=== PATIENT | female | born 1960 | race Caucasian/White ===

== ENCOUNTER 2025-07-28 14:19 | Emergency (ER) | payer OTHER, SELFPAY ==
[2025-07-28] VITALS (52 sets, daily range): BP systolic 120–168; BP diastolic 65–111; PULSE 93–104; TEMP 36.9; O2SAT 89–99; BMI 41.5
--- NOTE | 2025-07-28 15:04 | ECG_ITS ---
The [facility] Test Date: 2025-07-28 Pat Name: CHELI CHAMBERLAIN Department: Room: - Gender: Female Accounts Payable Clerk: : 1960 Requested By: [id number] Order Number: [id number] Reading MD: CASANDRA DIAZ Measurements Intervals [place] Rate: 101 P: 44 [place]: 154 QRS: 13 QRSD: 108 T: 40 QT: 334 QTc: 392 Interpretive Statements 1120 Sinus tachycardia 3114 Cannot rule out anterior myocardial infarction, age undetermined 9150 abnormal ECG No previous ECG available for comparison Electronically Signed On 07-28-2025 16:43:28 EST by CASANDRA DIAZ
--- NOTE | 2025-07-28 15:04 | XR_ITS ---
The [address] [address] Patient Name: CHELI CHAMBERLAIN MRN: [id number] date: 1960 Sex: F Assigned Patient Location: ED.MAIN Current Patient Location: ER Accession/Order Number: [id number] Exam Date: 07/28/2025 15:41 Report Date: 07/28/2025 16:44 At the request of: KANE MCGUIRE Procedure: XR chest 1V XR chest 1V 07/28/2025 3:46 PM SIGNS AND SYMPTOMS: ^edema ^ Weakness PROTOCOL: Frontal radiograph of the chest COMPARISON: None FINDINGS: The trachea is midline. There is mild cardiomegaly. The mediastinal structures are within normal limits. There is mild perihilar vascular prominence. The bony thorax is intact. XR/XR chest 1V IMPRESSION: Mild cardiomegaly is present with mild perihilar vascular prominence. This may represent sequelae of congestive heart failure. Impression dictated by: Camilo Platt M.D. 07/28/2025 4:44 PM Dictation Location: [place] [address] Electronically authenticated by: [id number] Y Date: 07/28/2025 16:44
--- OUTSIDE RECORDS SUMMARY | 2025-07-28 15:23 | XMS_ITS | Clinical Summary ---
Author Organization [facility] Address [address] [place], [place] [address] Care Team Providers Care Shipping And Receiving Material Handler Name Role Phone Amanda Tao MD Primary Care Provider [phone]- [phone] Allergies Active AllergyReactionsCriticalityNoted DateCommentsCodeineOther: See Comments 05/01/2013DoxycyclineShortness of Dgvivb4504/25/2013 Medications MedicationSigDispense QuantityRefillsLast FilledStart DateEnd DateStatus lisinopril-hydrochlorothiazide 10-12.5 mg per tablet Take 1 tablet by mouth once daily.Active cloNIDine TTS (CATAPRES-TTS) 0.1 mg/24 hr Apply 1 Patch as directed once each week.Active calcium polycarbophil (FIBERCON) 625 mg tablet Take 625 mg by mouth once daily.Active iv contrast (radiology procedure) CT Chest ABD/PEL-Inject, intravenously, once for 1 dose.No IV access, insert saline lock prior to the beginning of sedation, infusion, injection of imaging exam. Discontinue saline lock post exam. IfPt. has a central line or IVAD, may access for administration according to line specific nursing protocol. Once exam is complete flush line and de-access according to line specific nursing protocol in the CT contrast administration guidelines link. 1 Each Active enteric contrast (radiology procedure) For CT CHESTABD/PEL W IVCON Routine order Administer, As Directed One Time Only, via Oral, Rectal, both Oral and Rectal, Enteric Tube, Stoma or Indwelling Catheter, Enteric Contrast as designated perenteric contrast guidelines 1 Each Active iv contrast (radiology procedure) CT Chest ABD/PEL-Inject, intravenously, once for 1 dose.No IV access, insert saline lock prior to the beginning of sedation, infusion, injection of imaging exam. Discontinue saline lock post exam. IfPt. has a central line or IVAD, may access for administration according to line specific nursing protocol. Once exam is complete flush line and de-access according to line specific nursing protocol in the CT contrast administration guidelines link. 1 Each 07/27/2016Active enteric contrast (radiology procedure) For CT CHESTABD/PEL W IVCON Routine order Administer, As Directed One Time Only, via Oral, Rectal, both Oral and Rectal, Enteric Tube, Stoma or Indwelling Catheter, Enteric Contrast as designated perenteric contrast guidelines 1 Each 07/27/2016Active Active Problems ProblemNoted DateDiagnosed DateAbnormal gjuoznilj33/11/2015History of rectal or anal wwsaqd3407/22/20147146Fpbbmnt65/10/1459Qnizrcsip02/02/2013HTN (hypertension) 04/25/2013Squamous cell carcinoma of anal canal04/25/2013 Family History Medical HistoryRelationCommentsCancerFatherunklnown sourceCancerMotherovarian CancerOtherAunt breastRelationStatusCommentsFatherMotherOther Social History Tobacco UseTypesPacks/DayYears UsedDateSmoking Tobacco: NeverSmokeless Tobacco: NeverAlcohol UseStandard Drinks/WeekCommentsYes0 (1 standard drink = 0.6 oz pure alcohol)occasionallyCommentsNoSex and Gender InformationValueDate RecordedSex Assigned at BirthNot on fileLegal HxxTbylxh45/04/2013 11:19 AM EDT Gender IdentityNot on fileSexual OrientationNot on file Last Filed Vital Signs Vital SignReadingTime TakenCommentsBlood Hkruagmc594/8407/27/2016 10:08 AM EST Uaust437907/27/2016 10:08 AM DBEFysnfwagzug19.1 ??C (98.7 ??F)07/27/2016 10:08 AM ESTRespiratory Oxma798609/27/2015 10:08 AM ESTOxygen Rulyitreqs83%06/24/2013 10:00 AM ESTInhaled Oxygen Concentration--Oqidby311.4 kg (263 lb 3.2 oz)07/27/2016 10:08 AM ITEBedxiy562.7 cm (5' 7.99 )07/27/2016 10:08 AM ESTBody Mass Index40.03 07/27/2016 10:08 AM EST Plan of Treatment Health MaintenanceDue DateLast DoneCommentsAnxiety Wdbemgfkw58/30/1979Depression Irlmtjiph68/30/1979HIV Mlhotacfq94/30/1979Hepatitis C Ixfiagrsz03/30/1979 DTaP,Tdap,Td Vaccine (1 - Tdap)02/10/1980Cervical Cancer Wroprljho33/30/1982 Mammogram Dmhfteqbk74/30/2001CT Cqlqgmloitsb58/30/2006Cologuard (FIT-DNA) 02/09/20063753Tyqcbucijhx21/30/2006Colorectal Cancer Foheuuxaf67/30/2006Fecal Occult Blood2006Lipid Peotsigdl48/30/2224Zfszyhoytihvy75/30/2006Pneumococcal Vaccine: 50+ (1 of 1 - PCV)2011Shingrix Vaccine (1 of 2)2011Diabetes Hpmniiclj57Covid-19 Vaccine (1 - 2024- season)2025 Influenza Vaccine (#1)2025RSV Vaccine (1 - 1-dose 75+ series)02/10/2036 Procedures Procedure NamePriorityDate/TimeAssociated DiagnosisCommentsCOMPREHENSIVE METABOLIC BCXXYGjjfrrr51/10/2014 3:18 PM EST Squamous cell carcinoma of anal canal History of rectal or anal cancer from Last 3 Months or Most Recently Relevant to Health Maintenance Results * (ABNORMAL) COMP METABOLIC PANEL (07/22/2014 3:18 PM EST)ComponentValueRef RangeTest MethodAnalysis TimePerformed AtPathologist SignatureProtein, Total 7.16.0 - 8.4 g/dLBUCYRUS COMM[facility]ITY [facility]PITAL LABORATORYAlbumin4.43.5 - 5.0 g/dL [facility] JEMDHYHWDBXifdblt06.08.5 - 10.5 mg/dLBUCYRUS COMMUNITY HOSPITAL LABORATORYBilirubin, Total0.60.0 - 1.5 mg/dLBUCYRUS COMMUNITY HOSPITAL LABORATORYAlkaline Ukjbicvqqmp8442 - 150 U/LCPREMI[facility] LABORATORY DWF624 - 40 U/LCPREMIER [facility] FIDVHXOFPXIcethre478(H)65 - 100 mg/dL [facility] TDBGMUKQYIMGN482 - 25 mg/dLBUCYRUS [facility]UNITY [facility]OSP[facility] LABORATORYCreatinine1.100.70 - 1.40 mg/dLBUCYRUS COMMUNITY [facility] LAB[facility]ORY Olzqai500653 - 148 mmol/LCKETTER[facility] LABORATORYPotassium4.03.5 - 5.0 mmol/LCKETTERING [facility] BTPIBOYQFZPyrlxbmk74714 - 110 mmol/LCPREMIER [facility] KFNQWCXVPXNW66258 - 32 mmol/LCKETTERING [facility] LABORATORYAnion Dnq832 - 15 mmol/LCKETTERING [facility] REUAOIEIMWSGK078 - 45 U/LCPREMIER [facility]ALTH [facility]TR[facility] LABORATORYeGFR->60[facility] eGFR-All Other Races52.[facility] LABORATORYComment: eGFR (Estimated GFR) Units of measure: mL/min/1.73 meters squared eGFR is derived from the reexpressed MDRD Study equation using the following parameters: serum creatinine, age, gender and race. The creatinine assay has been calibrated to be traceable to IDMS. An eGFR <60 mL/min/1.73m2 for >3 months is consistent with chronic kidney disease. Refer to KDOQI guidelines for clinical interpretation. In patients with unstable renal function, e.g. those with acute kidney injury, the eGFR may not accurately reflect actual GFR. Specimen (Source)Anatomical Location / LateralityCollection Method / Volume Collection TimeReceived TimeBlood specimen (specimen)BLOOD SPECIMEN / Unknown 07/22/2014 3:18 PM EST07/22/2014 3:23 PM EST Narrative Authorizing ProviderResult TypeResult StatusAntoine Chan DOLABORATORY Final ResultPerforming OrganizationAddressCity/State/ZIP CodePhone Number [facility] [address] [place] [address] from Last 3 Months or Most Recently Relevant to Health Maintenance Care Teams Team MemberRelationshipSpecialtyStart DateEnd Date Amanda Tao MD [address] [place] [address] PCP - GeneralFamily Medicine04/16/13
--- OUTSIDE RECORDS SUMMARY | 2025-07-28 15:23 | XMS_ITS | Patient Health Record ---
Author Organization [facility] [place] Address [address] [place] [address] Care Team Providers Care Reweaver Name Role Phone Mane HAYES-Almaz Primary Care Provider Alexandrea vailable Jose Borrego Unavailable [phone] Allergies No Known Allergies Reason For Referral Diagnosis 1 Chronic kidney disea se, stage 3 unspecified (N18.30) Referring Provider First Name Almaz Referring Provider Last Name Mane Referring Provider Speciality Nurse Prac titioner [facility] Referred Provider Jose Borrego Referred Address [address] [place], [place],[address], Referred Provider Specialty Nephrology General Notes Doreen Gannon 02/12 01:10:27 PM >Appt 04/20/2025, MAILED N/P INFO Referral Priority Routine Medications Medication SIG (Take, Route, Frequency, Duration) Notes Start Date End Date Status Levothyroxine Sodium 75 MCG 1 tablet in the morning on an empty stomach Orally Once a day ActiveLisinopril 5 MG1 tablet Orally Once a dayActiveLoperamide HCl 2 MG1 tablet as needed OrallyActiveVitamin Z3ArdoqwGyccglojheb HCl 20 MG1 tablet Orally BID Active Social History Tobacco Use: Social History Observation Description Date Details (start date - stop date) Never Smoker NA - NA Tobacco Control (Standard) Question Answer Notes Tobacco use: Nonsmoker Problems Problem Type SNOMED Code ICD Code Onset Dates Problem Status W/U Status Risk Notes Problem Hypothyroidism (30945114) Hypothyroidism (acquired) (E03.9) ActiveconfirmedProblemEssential hypertension (90330969)Asymptomatic hypertension (I10)ActiveconfirmedProblemChronic kidney disease stage 3 (disorder) (002624604) Chronic kidney disease, stage 3 unspecified (N18.30)ActiveconfirmedProblem Chronic kidney disease stage 3A (disorder) (188819047)Chronic kidney disease, stage 3a (N18.31)Activeconfirmed Vital Signs Blood pressure diastolic 90 mm Hg 05/25/2025 Ddheqf3an 7.5in in05/25/2025lood pressure txpoggrc616 mm Hg05/25/2025Weight 273.8 lbs1MI42.25 kg/m205/25/2025 Encounters Encounter Location Date Provider Diagnosis [address] [address] 04/20/2025 Jose Borrego Chronic kidney disea se, stage 3a N18.31 ; Hypothyroidism (acquired) E03.9 ; Cystitis N30.90 and Asymptomatic hypertension I10 [address] [address] 05/25/2025 Jose Borrego Chronic kidney disea se, stage 3a N18.31 ; Asymptomatic hypertension I10 and Cystitis N30.90 [facility] [address] [address] 04/03/2025 Jose Borrego Assessments Encounter Date Diagnosis (ICD Code) Assessment Notes Treatment Notes Treatment Clinical Notes Section Notes 04/20/2025 Hypothyroidism (acquired) (ICD-1 0 - E03.9) 04/20/2025hronic kidney disease, stage 3a (ICD-10 - N18.31) 65 yo F with CKD 3a, htn, 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 No need for repeat renal imaging, no stones or hydronephrosis on recent CT scan Avoid all NSAID use Encourage good daily oral hydration Continue lisinopril 5mg po daily for BP control Check initial blood and urine studies for evaluation of her CKD Continue thyroid replacement Plan office f/u in a few weeks to review her results 05/25/2025symptomatic hypertension (ICD-10 - I10)05/25/2025hronic kidney disease, stage 3a (ICD-10 - N18.31) 65 yo F with stable CKD 3a related to htn Mild UA abnormalities 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 Avoid all NSAID use Encourage good oral hydration Continue MEAGHAN-I for management of htn and albuminuria PTH and vit D levels are OK Appears euvolemic on exam today No need to add an SGLT2i yet Monitor home BP log and call the office his over 130/80 on a regular basis 05/25/2025ystitis (ICD-10 - N30.90)04/20/2025ystitis (ICD-10 - N30.90) 04/20/2025symptomatic hypertension (ICD-10 - I10) Plan Of Treatment Pending Test Test Name Order Date UA (URINALYSIS, COMPLETE) 04/20/2025 UA (URINALYSIS, COMPLETE) 05/25/2025 ALBUMIN, BLOOD 05/25/2025 ALBUMIN, BLOOD 04/20/2025 MAGNESIUM 04/20/2025 MAGNESIUM 05/25/2025 CBC NO DIFF 05/25/2025 CBC NO DIFF 04/20/2025 PHOSPHORUS 04/20/2025 PHOSPHORUS 05/25/2025 PTH INTACT (PARATHYROID HORMONE) 025 PTH INTACT (PARATHYROID HORMONE) 025 URIC ACID 04/20/2025 URIC ACID 05/25/2025 VITAMIN D, 25 LEVEL (TOTAL) 05/25/2025 VITAMIN D, 25 LEVEL (TOTAL) 04/20/2025 BMP (BASIC MET PANEL) w/eGFR CKD-EPI 03/2025 BMP (BASIC MET PANEL) w/eGFR CKD-EPI MICROALBUMIN w CREAT RATIO 05/25/2025 MICROALBUMIN w CREAT RATIO 04/20/2025 Next Appt Details Provider Name:Jose Lance Borrego, 11/23/2025 01:00:00 PM, [address] [facility], [place], [address], Insurance Providers Payer Name Payer Address Payer Phone Subscriber Number Group Number Insured Name Patient Relationship to Insured Coverage Start Date Coverage End Date [place] [employer] [facility] EXCH[employer] [address] [place] [address] [phone] [id number] Karen Antunez Self - patient is the insured Medical (General) History Medical History History ICD Code abdominal pain abnormal CT of the abdomenalopeciaanal canceratrophic vaginitisbleeding hemorrhoidcolon polypdifficulty voidingHx of colon polypshypothyroidismIBS indigestionlung rumwgw-hptizvf-karg 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
--- OUTSIDE RECORDS SUMMARY | 2025-07-28 15:23 | XMS_ITS | Clinical Summary ---
Author Organization [facility] Address [address] [place] [address] Phone Care Team Providers Care Brick Cleaner Name Role Phone Amanda Tao MD Primary Care Provider +1- [phone] Social History Tobacco UseTypesPacks/DayYears UsedDateSmoking Tobacco: Never Assessed CommentsUnknownSex and Gender InformationValueDate RecordedSex Assigned at Not on fileLegal KeuRhsrhb39/26/2022 9:37 AM ESTGender IdentityNot on fileSexual OrientationNot on file Last Filed Vital Signs Vital SignReadingTime TakenCommentsBlood Ajgcxobe700/7808 9:31 AM EDT Qhxkw0725 9:29 AM EDTTemperature--Respiratory Rate--Oxygen Saturation-- Inhaled Oxygen Concentration--Iueoxu718 kg (261 lb)03/20/2022 9:29 AM EDTHeight 170.2 cm (5' 7 )03/20/2022 9:29 AM EDTBody Mass Index40.8808 9:29 AM EDT Plan of Treatment Not on file Care Teams Team MemberRelationshipSpecialtyStart DateEnd Date Amanda Tao MD [address] Amanda Tao [place] [address] PCP - General12/11/17
--- OUTSIDE RECORDS SUMMARY | 2025-07-28 15:23 | XMS_ITS ---
Author Organization [facility] Address [address] [place], [place] [address] Care Team Providers Care Software Engineer Name Role Phone Amanda Tao MD Primary Care Provider Active Problems ProblemNoted DateDiagnosed DateAbnormal dwmhwmkqi65/11/2015History of rectal or anal gggqws3507/22/20149592Lbcuajq80/10/4119Noimxpdnx38/02/2013HTN (hypertension) 04/25/2013Squamous cell carcinoma of anal canal04/25/2013 Current Treatment and Therapy Plans No current plan information found. Past Treatment and Therapy Plans Plan NameStart DateDiscontinue DateTreatment MedicationsDiscontinue ReasonPlan ProviderCyclesCENTRAL LINE FLUSH - Weekly x 24 weeksNo medications scheduled.Antoine Vargas, DO1 of 1 cycle startedPlan Name Start DateDiscontinue DateTreatment MedicationsDiscontinue ReasonPlan Provider CyclesFluids/KCL06/24/2013No medications scheduled.Antoine Vargas, DO 1 of 1 cycle startedNS 1000ML IV DURING VISIT06/24/2013No medications scheduled. Antoine Vargas, DOTreatment not startedPlan NameStart DateDiscontinue DateTreatment MedicationsDiscontinue ReasonPlan VtjrabstZqrcoh7KY 4000 CADD 96 HOURS D1,29 MITOMYCIN 10 D1,291* fluorouracil iv infusion CASSETTE (ADRUCIL) * mitoMYcin syringe (MUTAMYCIN) Antoine Vargas, DO1 of 1 cycle started
--- OUTSIDE RECORDS SUMMARY | 2025-07-28 15:23 | XMS_ITS | Clinical Summary ---
Author Organization [facility] Address [address] [place] [address] Care Team Providers Care Ocean Biologist Name Role Phone Marc Gunn MD Primary Care Provider [phone] Rashaad Johnson DO Unavailable [phone] Pascale Lewis AUD Unavailable [phone] Allergies Active AllergyReactionsCriticalityNoted DateCommentsCodeineGI intolerance 05/01/20135913PusssdbtecnBnfttoa06/28/2023 Medications MedicationSigDispense QuantityRefillsLast FilledStart DateEnd DateStatus lisinopril 5 MG tablet Take 5 mg by mouth 1 (one) time each day at the same timeActive dicyclomine (Bentyl) 20 MG tablet Take 20 mg by mouth in the morning and 20 mg before bedtime.06/20/2023ctive loperamide (Imodium) 2 MG capsule Take 2 mg by mouth as needed in the morning and 2 mg as needed at noon and 2 mg as needed in the evening.06/14/2023ctive ondansetron (Zofran) 4 MG tablet Take by mouth every 8 (eight) hours if kugryd7205/16/2023ctive Estrace 0.1 MG/GM vaginal cream See Instructions, 42.5 gm, Refill(s) 6, apply a pea-sized amount vaginally and around the urethra nightly x 3 weeks, then 3x per week thereafter, [facility] 1429, 172, cm, 10/08/24 9:58:00 EST,Height/Length Dosing, 123.6, kg, 10/08/24 9:58:00 EST, Weight Uikxvi865Active levothyroxine (Synthroid, Levoxyl) 75 MCG tablet Take 75 mcg by mouth Daily5Active Active Problems ProblemNoted DateDiagnosed DateAcute chest wall pain01/28/20240384Uprlgcgw14/17/2024 Anemia associated with /17/2024hange in auttta6901/28/2024Edema 01/28/20242854Fmfvyywn27/17/9767Tkgdyqrtk18/17/2024IBS (irritable bowel syndrome) 01/28/2024Lesion of buccal nlhmmo4001/28/2024Lung cancer, primary, with metastasis from lung to other site01/28/20242434Feqygacvnx00/17/2024Lymphedema of right lower cpwedfdbk97/17/2024Mass of right lung01/28/2024Mild intermittent asthma without nwwbmxtyyule60/17/2024eripheral neuropathy due to tinazelsfdfh16/17/2024 Alzbgqzftk88/17/2024SOB (shortness of breath)01/28/2024Stuffy nose01/28/2024 Swelling of right upper mbkqumrlz73/17/2024TMJ jmesnsxwvn48/17/2024Unsteady gait when bkkrgyu6201/28/20241050Uqagxjwuu08/17/7717Jmfrvks99/17/2024Weight gain01/28/2024 Primary bieirdgnaqcm29/17/2024Malignant neoplasm metastatic to brain01/28/2024 Anal vbjaok1701/28/2024Malignant neoplasm of anus01/28/2024ilateral hearing loss 01/07/2023hronic mucoid otitis media of right ear01/07/2023hronic otitis media 01/07/2023History of rresrgkcqdmkq21/28/2023Impacted cerumen of both ears 01/07/2023Malignant (primary) neoplasm, tiizwmiqxtb87/28/2023Malignant tumor of anus01/07/2023Recurrent squamous cell carcinoma of anus01/07/2023Mixed conductive and sensorineural hearing loss of right ear with restricted hearing of left ear01/07/2023Sensorineural hearing loss (SNHL) of both ears01/07/2023 Postmenopausal atrophic lngnyqwmp36/28/2023Secondary malignant neoplasm of brain 01/07/2023bnormal gegwftewl95/11/5756Opigzbz29/10/2014History of rectal or anal yvfqjb3507/22/2014Malignant neoplasm of rectum, rectosigmoid junction and anus 10/16/20133440Jgcakccox33/02/2013HTN (hypertension)04/25/2013Squamous cell carcinoma of anal canal04/25/2013Essential iikipcwpiclb17/22/2013 Resolved Problems ProblemNoted DateDiagnosed DateResolved DateAbnormal CT of the euhtwfm2701/27/2025 01/27/2025olon polypDifficulty xztliqf24 History of colon /8540Banyrorebci29 Lnylimjui81Radiation xirwcyty00bdominal painright red rectal aaawkxqc87olitis Encounter for follow-upMixed ktbmlxobosfr81/17/202412/Urinary eppumfome22/Urinary kumaiekihun77 Family History Medical HistoryRelationNameCommentsColon cancerBrotherCancerFatherHeart disease FatherCancerMaternal GrandmotherCancerMotherDiabetesMotherHeart diseaseMother CancerMother's SisterDiabetesMother's SisterStrokeMother's SisterCancerSibling DiabetesSiblingHeart diseaseSiblingHeart diseaseSisterolder sisterOvarian cancer Sistermets to qgebpwiRbhacwXazdiusjLgxqUhffzvLvodcosqMnamwsmd0VozrkwShzccrkh Maternal GrandmotherMotherDeceasedMother's SisterOtherNo family history of breast cancerSiblingSisterx2 Social History Tobacco UseTypesPacks/DayYears UsedDateSmoking Tobacco: NeverSmokeless Tobacco: Never Tobacco Cessation:Counseling Given: Not Answered Alcohol UseStandard Drinks/WeekCommentsNever0 (1 standard drink = 0.6 oz pure alcohol)caffeine: 1-2 cups per day coffee, sodaCommentsUnknownSex and Gender InformationValueDate RecordedSex Assigned at BirthNot on fileLegal Sex Oukuao6610/25/2022 6:47 PM EDTGender IdentityNot on fileSexual OrientationNot on fileOccupationIndustryJob Start DateJob End DateunemployedNot on fileNot on file Not on file Last Filed Vital Signs Vital SignReadingTime TakenCommentsBlood Kpxxhtvm696/8403 12:00 PM EST Pulse--Temperature--Respiratory Rate--Oxygen Saturation--Inhaled Oxygen Concentration--Iuhllz510 kg (240 lb)02/10/2025 10:33 AM XHGGurdhm026.5 cm (5' 7.5 )02/10/2025 10:33 AM EDTBody Mass Index37.03002/10/2025 10:33 AM EDT Plan of Treatment Health MaintenanceDue DateLast DoneCommentsCT Heeaqgkcafoh1961FIT-DNA 1960FIT1960FOBT1960 9009Zjqtkzxkksscn1961ap Smear1982 Cervical Cancer Fepypdsby52/30/1991HPV/Swaxsd1102/09/1991COVID-19 Vaccine (2024- season)/, 12/13/2020, 11/22/2020Influenza Vaccine (#1)04/13/20251076Lynrgesex60olonoscopy5009/18/2024 Colorectal Cancer Cnndtgcus24/06/2035Pneumococcal Vaccine: Pediatrics (0 to 5 Years) and At-Risk Patients (6 to 64 Years)Aged OutNo longer eligible based on patient's age to complete this topic Procedures Procedure NamePriorityDate/TimeAssociated DiagnosisCommentsBI MAMMOGRAM SCREENING TOMOSYNTHESIS HVGTUMFQJYtpaqvv41/28/2025 4:17 PM EDT Encounter for screening mammogram for malignant neoplasm of breast from Last 3 Months or Most Recently Relevant to Health Maintenance Results * Bilateral screening mammogram with tomosynthesis (03/09/2025 4:17 PM EDT) Anatomical RegionLateralityModalityBreastBilateralMammographySpecimen (Source) Anatomical Location / LateralityCollection Method / VolumeCollection Time Received Time03/11/2025 9:31 AM EDT Impressions 03/11/2025 9:38 AM EDT Impression: No specific evidence of malignancy seen in either breast. BIRADS 2 - Benign Findings DENSITY: The breasts are almost entirely fatty. FOLLOW-UP: Routine Screening Mammogram ELECTRONICALLY SIGNED BY: John Wong M.D. Narrative 03/11/2025 9:38 AM EDT Examination: BI MAMMOGRAM SCREENING TOMOSYNTHESIS BILATERAL Clinical History: routine Technique: Screening digital mammography study of both breasts was performed with 2-D and 3-D tomosynthesis imaging. Study was compared to the prior exam dated 10/13/2019. Findings: There is no evidence of interval dominant spiculated mass, grouped microcalcifications, or skin thickening which would be suggestive of malignancy. ?? A few benign-appearing calcifications are seen bilaterally. A few small benign- appearing asymmetricdensities are noted bilaterally likely representing focal fibrocystic changes and/or intramammary lymph nodes. Axillary lymph nodes including partially visualized lymph node noted on the left which appear grossly unremarkable. Procedure Note oJhn Wong MD - 03/11/2025 Examination: BI MAMMOGRAM SCREENING TOMOSYNTHESIS BILATERAL Clinical History: routine Technique: Screening digital mammography study of both breasts wasperformed with 2-D and 3-D tomosynthesis imaging. Study was compared tothe prior exam dated 10/13/2019. Findings: There is no evidence of interval dominant spiculated mass,grouped microcalcifications, or skin thickening which would be suggestiveof malignancy. A few benign-appearing calcifications are seen bilaterally. A few smallbenign- appearing asymmetric densities are noted bilaterally likelyrepresenting focal fibrocystic changes and/or intramammary lymph nodes.Axillary lymph nodes including partially visualized lymph node noted onthe left which appear grossly unremarkable. IMPRESSION: Impression: No specific evidence of malignancy seen in either breast. BIRADS 2 - Benign Findings DENSITY: The breasts are almost entirely fatty. FOLLOW-UP: Routine Screening Mammogram ELECTRONICALLY SIGNED BY: John Wong M.D. Authorizing ProviderResult TypeResult StatusAlmaz Gilliam NPIMG BI PROCEDURES Final Result from Last 3 Months or Most Recently Relevant to Health Maintenance Insurance * Guarantor: Karen Antunez TypeRelation to PatientDate of BirthPhone Billing AddressPersonal/YjsbkyLwdw1960 [address] [address] Care Teams Team MemberRelationshipSpecialtyStart DateEnd Marc Gunn MD [address] [place] [id number] PCP - GeneralFamily Eilfuaif52/17/24 Rashaad Johnson DO [address] [place] [address] Otolaryngology01/27/25 Pascale Lewis AUD [address] [place] [address] Audiology01/27/25
--- OUTSIDE RECORDS SUMMARY | 2025-07-28 15:23 | XMS_ITS | Patient Health Record ---
Author Organization [facility] es Address [address] [place] [address] Care Team Providers Care Human Resources Benefits Specialist Name Role Phone Dr. Kale Fine Primary Care Provider Reason For Referral No Information Plan Of Treatment No Information Insurance Providers Payer Name Payer Address Payer Phone Subscriber Number Group Number Insured Name Patient Relationship to Insured Coverage Start Date Coverage End Date [place] [address] [place] [address] [id number] Kevin CHAMBERLAIN - patient is the [id number] 2022ENTAL [place] [address] [place] [id number], TAMMYSelf - patient is the [id number] 2022
[2025-07-28 15:42] LABS: Hematocrit 32.4 % (36.0-48.0); Hemoglobin 10.8 g/dL (12.0-16.0); Immature Granulocytes Abs Auto 0.05 10^3/uL (0.00-0.03); Immature Granulocytes Pct Auto 0.5 % (0.0-0.5); Lymphocytes Absolute Auto 0.8 10^3/uL (1.2-3.8); Mean Corpuscular HGB Conc 33.3 g/dL (29.9-35.2); Mean Corpuscular Hemoglobin 30.5 pg (26.7-34.0); Mean Corpuscular Volume 91.5 fL (81.0-99.0); Platelet Count 295 10^3/uL (150-450); Red Blood Count 3.54 10^6/uL (4.20-5.40); White Blood Count 9.9 10^3/uL (4.0-11.0)
[2025-07-28 15:56] LABS: INR 1.11; Prothrombin Time 11.6 sec (9.0-11.6)
[2025-07-28 16:01] LABS: Lactate/Lactic Acid 0.5 mmol/L (0.4-2.0)
[2025-07-28 16:03] LABS: Lipase 16.0 U/L (16.0-77.0)
[2025-07-28 16:08] LABS: Alanine Aminotransferase 12 U/L (14-59); Albumin Globulin Ratio 0.7; Albumin Level 2.7 g/dL (3.4-5.0); Alkaline Phosphatase 76 U/L (46-116); Anion Gap 16.7; Aspartate Amino Transferase 7 U/L (15-37); Blood Urea Nitrogen 72.0 mg/dL (7.0-18.0); Calcium 8.7 mg/dL (8.5-10.1); Carbon Dioxide 21.3 mmol/L (21.0-32.0); Chloride 103 mmol/L (98-107); Estimated GFR (African America 6 (>=60 mL/min/1.73m^2); Estimated GFR (Non-African Ame 5 (>=60 mL/min/1.73m^2); Globulin 3.8 g/dL; Glucose 93 mg/dL (74-106); Magnesium 1.8 mg/dL (1.8-2.4); Potassium 4.0 mmol/L (3.5-5.1); Sodium 137 mmol/L (136-145); Total Protein 6.5 g/dL (6.4-8.2)
--- NOTE | 2025-07-28 16:25 | CT_ITS ---
[address] [address] Patient Name: CHELI CHAMBERLAIN MRN: [id number] date: 1960 Sex: F Assigned Patient Location: ER Current Patient Location: ER Accession/Order Number: [id number] Exam Date: 07/28/2025 16:38 Report Date: 07/28/2025 17:07 At the request of: KANE MCGUIRE Procedure: CT abdomen pelvis wo con CT abdomen pelvis wo con 07/28/2025 4:43 PM SIGNS AND SYMPTOMS: ^New KLARISSA/renal failure, hx anal cancer, bilateral leg swelling and pain, shortness of breath TECHNIQUE: Multidetector ct axial images of the abdomen and pelvis were obtained without IV contrast. Multiplanar reformats were performed and reviewed to further define anatomy and possible pathology. CT was performed with one or more of the following dose reduction techniques: Automated exposure control, adjustment of the mA and/or kV according to patient size, or use of iterative reconstruction technique. COMPARISON: 06/27/2025 study from [facility] FINDINGS: Lower Chest: Atherosclerotic changes are noted in the coronary arteries and thoracic aorta. Calcified mediastinal and hilar lymph nodes are noted. Scarring is noted in the lung bases. ABDOMEN: Liver: Within normal limits. Bile Ducts: Normal caliber. Gallbladder: No calcified gallstones. Normal caliber wall. Pancreas: Within normal limits. Spleen: Within normal limits. Adrenals: Within normal limits. Kidneys: Similar bilateral hydronephrosis is noted. Pelvis: Reproductive Organs: No pelvic masses. Ureters: There is similar bilateral hydroureter. Bladder: Bladder is moderately distended to a similar degree when compared to the prior exam. Bowel: Normal caliber. There is a normal appendix in the right lower quadrant. Mesenteric Lymph Nodes: No enlarged mesenteric lymph nodes. Peritoneum: No ascites or free air, no fluid collection. Vessels: Atherosclerotic changes are noted in the abdominal aorta. Retroperitoneum: Within normal limits. Abdominal Wall: There is diffuse anasarca. Bones: Remote healed left anterior fractures are noted. Mild degenerative changes are redemonstrated in the thoracolumbar spine and sacroiliac joints. CT/CT abdomen pelvis wo con IMPRESSION: There is similar moderate distention of the bladder with hydroureter and hydronephrosis bilaterally. No evidence of obstructing stone or mass. There is diffuse anasarca. No acute intra-abdominal pathology is noted otherwise. Impression dictated by: Camilo Platt M.D. 07/28/2025 5:07 PM Dictation Location: [place] [address] Electronically authenticated by: [id number] Y Date: 07/28/2025 17:07
[2025-07-28 16:51] LABS: Glucose Urine UA NEGATIVE (NEGATIVE)
[2025-07-28 16:58] LABS: Cast Seen? NONE SEEN #/LPF (NONE SEEN); Crystals Seen? None Seen #/HPF (None Seen)
[2025-07-28 16:59] LABS: Urine Culture Indicated YES-FRMC
--- NOTE | 2025-07-28 17:03 | ED_ITS ---
HPI HPI - General Adult General Chief complaint: Extremity Problem, Nontraumatic Stated complaint: POSSIBLE BLOOD CLOT LOWER EXTREMITY Time Seen by Provider: 07/28/25 15:04 Source: patient and family Mode of arrival: Wheelchair History of Present Illness HPI narrative: This patient presents emergency department from her doctor's office with a chief complaint of lower extremity swelling. She states this has been going on for several days to weeks. Onset (ago): week(s) Location: Reports lower extremity Severity: severe Pain Consistency: Reports constant Relieving factors: Reports none Exacerbating factors: Reports none Associated symptoms: Reports malaise, shortness of breath and weakness Treatments prior to arrival: Reports none Related Data Home Medications ?Medication ?Instructions ?Recorded ?Confirmed amlodipine 5 mg tablet mg 07/28/25 dicyclomine 20 mg tablet mg 07/28/25 ergocalciferol (vitamin D2) 1,250 07/28/25 mcg (50,000 unit) capsule levothyroxine 75 mcg tablet mcg 07/28/25 loperamide 2 mg capsule mg 07/28/25 tamsulosin 0.4 mg capsule mg PO 07/28/25 Allergies Allergy/AdvReac Type Severity Reaction Status Date / Time Unable to Assess Allergy Verified 07/28/25 14:29 Opioid HPI Opioid Management Most Recent Opioid Data: Last Pain Scale 6 Today, 14:40 Review of Systems ROS Constitutional Reports: fatigue and malaise Cardiovascular Reports: shortness of breath with exertion and leg pain with exertion Respiratory Reports: shortness of breath Genitourinary Reports: other (Urine looks milky last few days) Musculoskeletal Reports: extremity swelling and muscle weakness Neurological Reports: weakness in extremities PFSH PFSH Social History Little interest or pleasure in doing things: not at all Feeling down, depressed, or hopeless: not at all Exam Narrative Exam Narrative: Patient is awake, alert, oriented x 3 Constitutional Vital Signs, click to edit/add: Last Vital Signs Temp 98.4 F 07/28/25 14:33 Pulse 104 H 07/28/25 15:40 Resp 20 07/28/25 15:40 BP 153/100 H 07/28/25 16:09 Pulse Ox 96 07/28/25 17:20 O2 Del Method Room Air 12/16/25 14:32 Documenting provider has reviewed patient's vital signs: yes Common normals: no apparent distress, oriented x3, no limitations and alert General appearance: cooperative, ill appearing chronically and appears older than stated age Orientation/consciousness: Yes awake, Yes oriented to person, Yes oriented to place and Yes oriented to time HENNY Common normals: normocephalic, head/scalp atraumatic, hearing grossly normal bilaterally and external ears normal Head and scalp: normal to inspection Face and sinus: normal facial exam Nose: external nose normal and nares normal External ear: external ears normal Mouth: oral and palatal mucosa normal Throat: posterior oropharynx normal Eye Common normals: PERRL, EOMs intact bilaterally, conjunctivae normal and no scleral icterus General eye: normal appearance of both eyes Conjunctiva: conjunctiva(e) normal Pupil: PERRL Neck & C-Spine Common normals: full ROM, no lymphadenopathy and supple General: normal visual inspection Lymph Lymphatic: no lymphadenopathy noted Chest Common normals: inspection of chest normal and palpation of chest normal Respiratory Common normals: normal respiratory effort, no retractions, no use of accessory muscles and clear to auscultation bilaterally Effort & inspection: able to speak in complete sentences Auscultation: clear to auscultation bilaterally Cardio Rate: tachycardic Back & Pelvis Common normals: no CVA tenderness, thoracic and lumbar spine normal to inspection and no thoracic nor lumbar tenderness Extremity Common normals: no pedal edema (4+ pitting edema extends all the way up to the waist) Neuro Common normals: oriented x3 and moves all extremities Sensorium/orientation: awake, alert, oriented to person, oriented to place and oriented to time Speech: speech normal Gait (neuro): shuffling (Due to anasarca) Psych Common normals: mental status grossly normal, thought process normal, cooperative, affect normal, speech normal and activity/motor behavior normal Appearance: grossly normal Attitude: calm and engaged Activity/motor behavior: appropriate eye contact Speech: normal speech Mood and affect: euthymic mood Thought process: normal thought process Thought content: normal thought content Attention/concentration: attention grossly intact Memory/cognition: memory grossly intact Insight: insight good Judgement: judgment good Course Course Hospital Course: Patient was interviewed and examined. The appropriate ER workup was initiated. Patient reveals that she has been in acute renal failure in the past. She states they were able to completely turn this around. She did not have to be on dialysis at all. Vital Signs Vital signs: Vital Signs Blood Pressure 168/88 H 07/28/25 14:28 Pulse Oximetry 97 07/28/25 14:28 Temperature 98.4 F 07/28/25 14:33 Pulse Rate 104 H 07/28/25 15:40 Respiratory Rate 20 07/28/25 15:40 Blood Pressure 153/100 H 07/28/25 16:09 Pulse Oximetry 96 07/28/25 17:20 Oxygen Delivery Method Room Air 07/28/25 14:32 Medical Decision Making MDM Narrative Medical decision making narrative: KLARISSA, acute renal failure, congestive heart failure, acute urinary obstruction, recurrent metastatic anal cancer Lab Data Lab results reviewed: Yes I reviewed the patient's lab results Labs: Lab Results 07/28/25 07/28/25 Range/Units 15:26 16:09 WBC 9.9 (4.0-11.0) 10^3/uL RBC 3.54 L (4.20-5.40) 10^6/uL Hgb 10.8 L (12.0-16.0) g/dL Hct 32.4 L (36.0-48.0) % MCV 91.5 (81.0-99.0) fL MCH 30.5 (26.7-34.0) pg MCHC 33.3 (29.9-35.2) g/dL RDW 13.0 (11.0-15.0) % Plt Count 295 (150-450) 10^3/uL MPV 10.2 (9.5-13.5) fL Neut % (Auto) 79.3 H (43.0-75.0) % Lymph % (Auto) 7.8 L (20.5-60.0) % [place] % (Auto) 11.4 (1.7-12.0) % Eos % (Auto) 0.8 L (0.9-7.0) % Baso % (Auto) 0.2 (0.2-2.0) % Neut # (Auto) 7.8 H (1.4-6.5) 10^3/uL Lymph # (Auto) 0.8 L (1.2-3.8) 10^3/uL [place] # (Auto) 1.1 H (0.3-0.8) 10^3/uL Eos # (Auto) 0.1 (0.0-0.7) 10^3/uL Baso # (Auto) 0.0 (0.0-0.1) 10^3/uL Abs Immat Gran (auto) 0.05 H (0.00-0.03) 10^3/uL Imm/Tot Granulo (auto) 0.5 (0.0-0.5) % PT 11.6 (9.0-11.6) sec INR 1.11 Sodium 137 (136-145) mmol/L Potassium 4.0 (3.5-5.1) mmol/L Chloride 103 (98-107) mmol/L Carbon Dioxide 21.3 (21.0-32.0) mmol/L Anion Gap 16.7 BUN 72.0 H (7.0-18.0) mg/dL Creatinine 8.78 H* (0.55-1.02) mg/dL Est GFR ( Amer) 6 L (>=60 mL/min/1.73m^2) Est GFR (Non-Af Amer) 5 L (>=60 mL/min/1.73m^2) BUN/Creatinine Ratio 8.2 Glucose 93 (74-106) mg/dL Lactate 0.5 (0.4-2.0) mmol/L Calcium 8.7 (8.5-10.1) mg/dL Phosphorus 5.8 H (2.6-4.7) mg/dL Magnesium 1.8 (1.8-2.4) mg/dL Total Bilirubin 0.3 (0.2-1.0) mg/dL AST 7 L (15-37) U/L ALT 12 L (14-59) U/L Alkaline Phosphatase 76 (46-116) U/L Troponin I High Sens 17.8 (4.0-51.3) pg/mL NT-Pro-B Natriuret Pep 1455.0 H* (<=900.0) pg/mL Total Protein 6.5 (6.4-8.2) g/dL Albumin 2.7 L (3.4-5.0) g/dL Globulin 3.8 g/dL Albumin/Globulin Ratio 0.7 Lipase 16.0 (16.0-77.0) U/L Urine Color Lt yellow (YELLOW) Urine Clarity Cloudy A (CLEAR) Urine pH 6.0 (5.0-9.0) Ur Specific [place] 1.010 (1.005-1.025) Urine Protein 30 A (NEG/TRACE) mg/dL Urine Glucose (UA) Negative (NEGATIVE) mg/dL Urine Ketones Negative (NEGATIVE) mg/dL Urine Occult Blood Large A (NEGATIVE) Urine Nitrite Negative (NEGATIVE) Urine Bilirubin Negative (NEGATIVE) Urine Urobilinogen N (0.2-1.0) EU/dL Ur Leukocyte Esterase Large A (NEGATIVE) Urine RBC 5-10 A (0-2) #/HPF Urine WBC >100 A (NONE SEEN) #/HPF Ur Squamous Epith Cells Rare (NONE/RARE) #/LPF Urine Crystals None seen (None Seen) #/HPF Urine Bacteria Large A (NONE SEEN) #/HPF Urine Casts None seen (NONE SEEN) #/LPF Urine Mucus None seen (NONE SEEN) Ur Culture Indicated? [place] [place] Data Interpretation: Sinus tachycardia, heart rate 101, AR interval 154, QRS 108, QT 334/QTc 392 Discharge Plan Discharge Chief Complaint: Extremity Problem, Nontraumatic Clinical Impression: Acute kidney injury superimposed on CKD, Anasarca associated with disorder of kidney, Pulmonary edema with congestive heart failure, Acute lower urinary tract infection Prescriptions / Home Meds: No Action loperamide 2 mg capsule amlodipine 5 mg tablet levothyroxine 75 mcg tablet tamsulosin 0.4 mg capsule PO dicyclomine 20 mg tablet ergocalciferol (vitamin D2) 1,250 mcg (50,000 unit) capsule Print Language: Fijian Referrals: Berny Soto NP [Primary Care Provider] - 1 week
[2025-07-28] MEDS: ACETAMINOPHEN 1,000 MG/100 ML PREMIX 400 MG IV (19:09)
== END 2025-07-28 23:53 | disposition short-term general hospital (02) ==
PROVIDERS: Physician Assistant; Emergency Provider Emergency Medicine; PCP Nurse Practitioner Primary Care
DX: N17.9 Acute kidney failure, unspecified (principal); N18.9 Chronic kidney disease, unspecified; N04.9 Nephrotic syndrome with unspecified morphologic changes; I50.9 Heart failure, unspecified; N39.0 Urinary tract infection, site not specified
CPT/HCPCS: 36415; 51702; 71045; 74176; 80053; 81001; 81003; 83605; 83690; 83735; 83880; 84100; 84484; 85025; 85610; 87040; 87086; 93005; 96365; 96367; 99285; J0131; J0696